=== PATIENT | male | born 1985 ===

== ENCOUNTER 2018-12-22 05:12 | Observation (INO) | payer OTHER ==
[2018-12-22] VITALS (12 sets, daily range): BP systolic 114–152; BP diastolic 76–98
[~2018-12-22] VITALS: Ht 167.6 cm; Wt 71.7 kg
[~2018-12-22 05:12] MED LIST: NKM
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
[2018-12-22] MEDS ORDERED: Rocuronium Bromide 50mg/5ml Inj IV ONE (06:33)
[2018-12-22] MEDS ORDERED: LR 1000ml 1,000 ML IVLG SCH (06:35)
--- NOTE | 2018-12-22 06:36 | Anethesia Preoperative Eval ---
Anesthesia Pre-op PMH/ROS General Date of Evaluation: Dec 22, 2018 Time of Evaluation: 06:56 Anesthesiologist: Jeffery ASA Score: ASA 1 Mallampati Score Class I : Soft palate, uvula, fauces, pillars visible Class II: Soft palate, uvula, fauces visible Class III: Soft palate, base of uvula visible Class IV: Only hard plate visible Mallampati Classification: Class I Surgeon: Rock Diagnosis: Neck Pain Surgical Procedure: ADR C5-6 Anesthesia History: none Family History: no anesthesia problems Allergies: Coded Allergies: No Known Allergies (Unverified , 12/21/18) Medications: see eMAR Patient NPO?: Yes NPO Date: Dec 21, 2018 NPO Time: 1999 Anesthesia Pre-op Phys. Exam Physician Exam Last Vital Signs Date Time Temp Pulse Resp B/P (MAP) Pulse Ox O2 Delivery O2 Flow Rate FiO2 12/22/18 05:47 97.2 52 20 114/76 (89) 100 12/22/18 05:43 Room Air Constitutional: NAD Neurologic: CN 2-12 intact Cardiovascular: RRR Respiratory: CTA Gastrointestinal: S/NT/ND Airway Exam Mallampati Score: Class I MO: full ROM: full Teeth: intact Anesthesia Pre-op A/P Risk Assessment & Plan Assessment: ASA 1 Plan: GA, SED, GlideScope Go Status Change Before Surgery: No Pre-Antibiotics Dru Grams Ancef IV Given Within 1 Hr of Incision: Yes Time Given: 09:55 Ervin Gil MD Dec 22, 2018 06:36
[2018-12-22] MEDS ORDERED: Thrombin 5000 units TOPIC ONE (06:38)
[2018-12-22] MEDS ORDERED: Gelfoam Size TOPIC ONE (06:38)
[2018-12-22] MEDS ORDERED: Vancomycin 1gm vial IVPB ONE (06:38)
[2018-12-22] MEDS ORDERED: Bacitracin 50000 Units Vial ONE (06:38)
[2018-12-22] MEDS ORDERED: HYDROcodone/Acetamin 5/325 tab ORAL PRN (06:45)
[2018-12-22] MEDS ORDERED: Hydromorphone 0.5mg/0.5ml inj IVP PRN (06:45)
[2018-12-22] MEDS ORDERED: LORazepam Inj 2mg/ml 1ml IV PRN (06:45)
[2018-12-22] MEDS ORDERED: Midazolam 2mg/2ml Inj IVP PRN (06:45)
[2018-12-22] MEDS ORDERED: Ketorolac 30mg Inj IV PRN ×2 (06:45)
[2018-12-22] MEDS ORDERED: Atropine Sulfate 0.4mg/ml inj IVP PRN (06:45)
[2018-12-22] MEDS ORDERED: DiphenhydrAMINE 50mg/ml Inj IVP PRN (06:45)
[2018-12-22] MEDS ORDERED: fentaNYL 100 mcg/2 mL IV PRN (06:45)
[2018-12-22] MEDS ORDERED: Acetaminophen (Non formulary) 100 ML IV ONE (06:45)
[2018-12-22] MEDS ORDERED: Meperidine 50mg/ml Inj(FOR RIGORS ONLY) IVP PRN (06:45)
[2018-12-22] MEDS ORDERED: HYDROcodone/Acetamin 7.5/325 tab ORAL PRN (06:45)
[2018-12-22] MEDS ORDERED: oxyCODONE HCL/Acetaminophen 5/325mg ORAL PRN (06:45)
[2018-12-22] MEDS ORDERED: Lidocaine 1% Plain 30 ml INJ ONE ×2 (06:47→08:43)
[2018-12-22] MEDS ORDERED: Lidocaine 1% MPF 10mg/ml 5ml ONE (06:47)
[2018-12-22] MEDS ORDERED: Sodium Chloride 10ml vial INJ ONE (06:47)
[2018-12-22] MEDS ORDERED: Dexamethasone 4mg/ml vial ONE (06:47)
[2018-12-22] MEDS ORDERED: fentaNYL 100 mcg/2 mL IV ONE ×2 (06:48→08:36)
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
[2018-12-22] MEDS ORDERED: Dexamethasone 20mg/5ml IVP SCH (07:00)
[2018-12-22] MEDS ORDERED: LR 1000ml ONE (07:00)
[2018-12-22] MEDS ORDERED: ceFAZolin sod 1 GM in NS 55 ML IVPB ONE (07:00)
[2018-12-22] MEDS ORDERED: Propofol 1,000mg/ 100ml btl IV ONE (07:00)
[2018-12-22] MEDS ORDERED: Neostigmine 1mg/ml 10ml Inj ONE (07:00)
--- NOTE | 2018-12-22 07:04 | Immediate Post-Op Evaluation ---
Immediate Post-Op Evalulation Immediate Post-Op Evalulation Procedure: ADR C5-6 Date of Evaluation: Dec 22, 2018 Time of Evaluation: 09:55 IV Fluids: 800 LR Blood Products: 0 Estimated Blood Loss: 25 Urinary Output: 0 Blood Pressure Systolic: 121 Blood Pressure Diastolic: 88 Pulse Rate: 69 Respiratory Rate: 16 O2 Sat by Pulse Oximetry: 98 Temperature (Fahrenheit): 98 Pain Score (1-10): 2 Nausea: No Vomiting: No Complications 0 Patient Status: awake, reacts, patent, extubated, none Dru Grams Ancef IV Given Within 1 Hr of Incision: Yes Time Given: 07:16 Ervin Gli MD Dec 22, 2018 07:04
[2018-12-22] MEDS ORDERED: Glycopyrrolate 0.2mg/ml 1ml Vial ONE (09:05)
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
--- NOTE | 2018-12-22 10:28 | Diagnostic Imaging Report ---
INDICATION: Pain, intraoperative TECHNIQUE: Intraoperative imaging Fluoroscopy time: 20.6 seconds Total dose: 0.42710 mGym2 Total number of images: 4 COMPARISON: None FINDINGS: Intraoperative images demonstrate surgical tool projected anterior to the C5-6 disc. Subsequent images document placement of a disc prosthesis at C5-6. This appears well aligned. IMPRESSION: Intraoperative imaging, as described
--- NOTE | 2018-12-22 10:50 | NUR ---
NURSE NOTES: Patient arrived to unit via bed, accompanied by RN. Received report from Yady RASHEED. Patient is awake but drowsy, no acute distress noted, reporting no pain at this time, just mild discomfort. On 2L NC. VS assessed and stable. Neuro check assessed intact. Anterior cervical dressing clean, dry, intact. Left hand IV intact, patent. SCD's in place. Patient oriented to room. Side rails upx3, bed low and locked, call light in reach. Will continue to monitor.
[2018-12-22] MEDS ORDERED: HYDROcodone/Acetamin 10/325 tab ORAL PRN (12:00)
[2018-12-22] MEDS ORDERED: Naloxone 0.4mg/ml Inj IVP PRN (12:00)
[2018-12-22] MEDS ORDERED: Morphine Sulfate 4mg/ml Inj (IV USE ONLY) IM PRN (12:00)
[2018-12-22] MEDS ORDERED: HYDROmorphone 1mg/ml Carpuject SUBQ PRN (12:00)
[2018-12-22] MEDS ORDERED: D5 1/2NS 1,000 ML IV SCH (12:00)
--- NOTE | 2018-12-22 12:29 | NUR ---
NURSE NOTES: Patient voided 700mL of urine without difficulty.
[2018-12-22] MEDS ORDERED: Chloraseptic Spray 20mL Bottle ORAL PRN (13:00)
[2018-12-22] MEDS ORDERED: ceFAZolin sod 1 GM in D5W 55 ML IV SCH ×2 (15:00→18:00)
--- NOTE | 2018-12-22 15:00 | NUR ---
NURSE NOTES: Patient tolerated clear liquid diet well, denies N/V, patient reports mild throat discomfort. Advanced diet to regular per MD order.
--- NOTE | 2018-12-22 15:38 | NUR ---
NURSE NOTES: Patient walked with physical therapy and tolerated well, ambulated steadily. Patient cleared for discharge by physical therapist Salty. Pain well managed, patient eating well. Will discharge per MD order.
--- NOTE | 2018-12-22 15:48 | NUR ---
P.T Note: P.T evaluation and P.T instructions provided /completed on spinal precautions and proper proper mechanics in performing ADl/functional mobility tasks with good verbalization of understanding and return demonstration. Pt functioning safely and independently within the surgical guidelines. Skilled P.T services no longer needed at this time. Addendum: 12/22/18 at 1549 by ELIAZAR AGUIRRE PT Amended: Links added.
--- NOTE | 2018-12-22 16:45 | Operative Note - Dictated ---
DATE OF OPERATION: 12/22/2018 SURGEON: Henir Wilkerson, PhD, M.D. HAND ENDBAND CUTTER: SOFÍA Escobar. ANESTHESIOLOGIST: Ervin Gil M.D. ANESTHESIA: General with intubation. ESTIMATED BLOOD LOSS: Minimal. COMPLICATIONS: None. POSTOPERATIVE CONDITION: Good/stable. SPECIMEN: Disk fragment of C5-C6, to pathology. OPERATIVE PROCEDURE: Artificial disk replacement, Medtronic, C5-C6, with fluoroscopic guidance interpreted by surgeon and SSEP monitoring. DESCRIPTION OF PROCEDURE: The patient was brought to the operating room and in the supine position, general anesthesia with intubation was induced. IV antibiotics and IV Decadron were administered 30 minutes prior to incision time. Lateral radiographs were obtained with markers in place on the contralateral aspect of the cervical spine demonstrating the correct level for incision placement. Under sterile pen use, the incision level was marked on the left side of the neck. Fluoroscopic guidance was utilized with markers to determine from the outside without penetration of the skin for level of incision placement. Level was appropriately marked on the left lateral aspect of the neck. Anterior cervical spine was sterilely prepped and draped free in usual sterile fashion. A transverse left incision was sharply placed at the appropriate interval between dermis and epidermis. Electrocautery dissection was carried through the subcutaneous tissue to the level of the platysmas muscle, which was identified, isolated, and transected in line with the incision. Blunt dissection was sequentially carried between the deep cervical and pretracheal fascia to the midline between the right and left longus colli muscles. The disk space was identified under high-power magnification. A spinal needle bent at 90-degree angles to avoid penetration greater than 3 mm was placed into the disk space and a cross-table image was obtained demonstrating the correct level for the dissection. Level was marked. Needle removed. Subperiosteal dissection of longus colli muscles not exceeding 3 mm in medial and lateral extent. Retractors placed. Cephalad and caudad pins with traction placed as well. Annulotomy performed with diskectomy to the level of the posterior longitudinal ligament extending from the right to the left joint of Luschka. The anterior lip resections at the inferior aspect of C5 was dissected with Midas Suraj bur dissection minimal. Posterior longitudinal ligament was resected under high-power magnification. No dural tears or leaks occurred at anytime during the procedure. SSEP monitoring stable at all times. Appropriate trials were utilized with the distraction on the neck removed. After the appropriate trial was determined, AP and lateral fluoroscopic images were obtained demonstrating correct depth, height, and midline. Appropriate cutters were utilized to follow the implantation of the appropriate artificial disk. Fit was excellent. AP and lateral fluoroscopic images recorded demonstrating midline and excellent position anteroposterior. Wound was irrigated with antibiotic-containing saline. All pins had been removed. Bleeding bone was cauterized with application of sterile wax. After exploration under high-power magnification, with no obvious excoriation or laceration of vital structures, FloSeal was applied. Reapproximation of platysmas muscle. Reapproximation with inverted interrupted sutures of Vicryl suture material of dermis and epidermis. Surgical strips followed with application of sterile bandage. The patient was awakened, extubated in the operating room, and transported to postop recovery in good stable condition. Henri Wilkerson M.D. DR: Belkis JOB#: [id number] CC:
--- NOTE | 2018-12-22 17:50 | NUR ---
NURSE NOTES: Patient discharged without distress. Provided patient with discharge education/handouts, reviewed with patient and patient verbalized understanding of provided education. Patient to follow up with Dr. Wilkerson on 01/09/19. Patient educated not to drive until cleared by Dr. Wilkerson, patient verbalized understanding. IV removed intact. Patient escorted off unit by RETAIL FINANCIAL ANALYST via wheelchair, accompanied by patient's to private vehicle.
--- NOTE | 2018-12-23 10:05 | 48 Hour Post Anesthesia Eval ---
Post Anesthesia Evaluation Procedure: ADR C5-6 Date of Evaluation: Dec 22, 2018 Airway: patent Nausea: No Vomiting: No Hydration Status: adequate Cardiopulmonary Status: at baseline Mental Status/LOC: patient returned to baseline Post-Anesthesia Complications: 0 Follow-up care needed: ready to discharge Juliana Ceron MD Dec 23, 2018 10:05
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
== END 2018-12-22 18:00 | disposition home or self-care (01) ==
LOC: SUR 05:12 → EDSTATUS 07:00 → 3E 10:50
DX: M54.2 Cervicalgia (principal); Z87.891 Personal history of nicotine dependence; R00.1 Bradycardia, unspecified; M50.220 Other cervical disc displacement, mid-cervical region, unspecified level
CPT/HCPCS: 22856; 36415; 72040; 76000; 86850; 86900; 86901; 87081; 96360; 96361; 96365; 97161; J0690; J1100; J2001; J2250; J2405; J2704; J2710; J3010; 94003; 94150